=== PATIENT | male | born 1930 | race Hispanic/Latino ===

== ENCOUNTER 2018-11-12 20:59 | Emergency (ER) | payer MEDICARE ==
--- NOTE | 2018-11-12 21:20 | Emergency Department Report ---
Blank Doc - Documentation Documentation: This is a 88-year-old male that presents with unable to urinate. HX of prostate enlargement. This initial assessment/diagnostic orders/clinical plan/treatment(s) is/are subject to change based on patient's health status, clinical progression and re- assessment by fellow clinical providers in the ED. Further treatment and workup at subsequent clinical providers discretion. Patient/guardians urged not to elope from the ED as their condition may be serious if not clinically assessed and managed. Initial orders include: 1- Patient sent to MAIN ED for further evaluation and treatment 2- labs 3- UA
[2018-11-12 21:58] LABS: Albumin 4.1 g/dL (3.9-5); Calcium 9.9 mg/dL (8.4-10.2)
[2018-11-12 22:07] LABS: Basophils # (Auto) 0.1 K/mm3 (0.0-0.1); Basophils % (Auto) 1.1 % (0.0-1.8); Eosinophils # (Auto) 0.2 K/mm3 (0.0-0.4); Hematocrit 40.2 % (35.5-45.6); Hemoglobin 13.9 gm/dl (11.8-15.2); Lymphocytes % (Auto) 25.1 % (13.4-35.0); Mean Corpuscular HGB Conc 35 % (32-34); Mean Corpuscular Volume 92 fl (84-94); Monocytes # (Auto) 0.6 K/mm3 (0.0-0.8); Monocytes % (Auto) 7.7 % (0.0-7.3); Platelet Count 231 K/mm3 (140-440); Red Blood Count 4.36 M/mm3 (3.65-5.03); Red Cell Distribution Width 14.5 % (13.2-15.2)
[2018-11-12] MEDS ORDERED: ZOFRAN IV ONE (22:26)
[2018-11-12] MEDS ORDERED: MORPHINE IV ONE (22:26)
[2018-11-12] MEDS ORDERED: ZOFRAN ONE (22:28)
[2018-11-12] MEDS ORDERED: MORPHINE ONE (22:28)
--- NOTE | 2018-11-12 22:29 | Emergency Department Report ---
<LOPEZ SCHULTZDino - Last Filed: 11/13/18 04:55> ED Male HPI - General Chief complaint: Urogenital-Male Stated complaint: NEED CATHETER Time Seen by Provider: 11/12/18 21:19 Source: patient Mode of arrival: Wheelchair Limitations: No Limitations - History of Present Illness Initial comments: 88-year-old male presents to ED with inability to urinate. Patient reports history of prostate issues in the past. Denies ever having any any prostate surgeries. Patient reports suprapubic pain. Urologist: Clair CAMILO Complaint: other (urinary retention) Severity: severe Quality: aching Consistency: constant Improves with: none Worsens with: none urinary retention. denies: nausea/vomiting - Related Data Allergies Allergy/AdvReac Type Severity Reaction Status Date / Time No Known Allergies Allergy Verified 11/12/18 21:05 ED Review of Systems Comment: All other systems reviewed and negative Constitutional: denies: chills, fever Genitourinary: other (reports difficulty urinaring) ED Physical Exam - General Limitations: No Limitations General appearance: alert, other (appears uncomfortable) - Head Head exam: Present: atraumatic, normocephalic - ENT ENT exam: Present: mucous membranes moist - Neck Neck exam: Present: normal inspection - Respiratory Respiratory exam: Present: normal lung sounds bilaterally. Absent: respiratory distress - Cardiovascular Cardiovascular Exam: Present: normal rhythm - GI/Abdominal GI/Abdominal exam: Present: soft, tenderness (suprapubic). Absent: distended - exam: Present: other (bladder does not feel distended) - Extremities Exam Extremities exam: Present: normal inspection - Neurological Exam Neurological exam: Present: alert, oriented X3 - Psychiatric Psychiatric exam: Present: normal affect, normal mood - Skin Skin exam: Present: warm, dry, intact, normal color ED Course - Reevaluation(s) Reevaluation #1: 11/12/18 23:[address] catheter, but were unable. Pt states he urinated a small amount into diaper since RNs attempt. Bladder scan shows 483 mL of urine in bladder. 11/13/18 00:21 Multiple attempts using multiple catheters unsuccessful. Will page urology. 11/13/18 04:55 Repeat bladder scan shows volume of 384 mL - Consultations Consultation #1: 11/13/18 00:40 Urology paged. 11/13/18 01:43 Spoke w/ Dr Mahan, urologist. Will come in to see the pt. 11/13/18 03:36 Dr Mahan paged again. Spoke w/ him again. States he will be coming in. Spoke w/ nurse to have supplies at bedside when he arrives. ED Medical Decision Making - Lab Data Result diagrams: 11/12/18 21:25 11/12/18 21:25 ED Disposition Clinical Impression: Urinary retention, Key catheter problem, UTI (urinary tract infection) Disposition: - TO HOME OR SELFCARE Condition: Stable Instructions: Urinary Retention in Men (ED), Urinary Tract Infection in Men (ED) Referrals: CAMRON STARKEY MD [Staff Physician] - 3-5 Days YAEL BROWN MD [Staff Physician] - 3-5 Days <MOHIT BERGERON - Last Filed: 11/13/18 11:11> ED Review of Systems ROS: Stated complaint: NEED CATHETER Other details as noted in HPI ED Course Vital Signs 11/12/18 11/12/18 11/12/18 22:26 22:35 22:45 Temperature Pulse Rate Respiratory Rate Blood Pressure 134/72 134/72 Blood Pressure [Left] O2 Sat by Pulse 96 97 Oximetry 11/12/18 11/12/18 11/12/18 23:01 23:15 23:18 Temperature 99.0 F Pulse Rate 87 Respiratory Rate Blood Pressure 134/72 134/72 Blood Pressure [Left] O2 Sat by Pulse 96 97 Oximetry 11/12/18 11/12/18 11/12/18 23:21 23:31 23:45 Temperature 98.9 F Pulse Rate 98 H Respiratory 16 Rate Blood Pressure 137/75 134/72 134/72 Blood Pressure [Left] O2 Sat by Pulse 100 98 96 Oximetry 11/13/18 11/13/18 11/13/18 00:01 00:15 00:31 Temperature Pulse Rate Respiratory Rate Blood Pressure 134/72 134/72 134/72 Blood Pressure [Left] O2 Sat by Pulse 97 97 97 Oximetry 11/13/18 11/13/18 11/13/18 00:45 01:01 01:15 Temperature Pulse Rate Respiratory Rate Blood Pressure 134/72 134/72 134/72 Blood Pressure [Left] O2 Sat by Pulse 95 94 96 Oximetry 11/13/18 11/13/18 11/13/18 01:31 01:46 02:03 Temperature Pulse Rate Respiratory Rate Blood Pressure 134/72 134/72 134/72 Blood Pressure [Left] O2 Sat by Pulse 97 85 Oximetry 11/13/18 11/13/18 11/13/18 03:04 03:17 03:33 Temperature Pulse Rate Respiratory Rate Blood Pressure 134/72 140/76 140/76 Blood Pressure [Left] O2 Sat by Pulse 79 L 100 Oximetry 11/13/18 11/13/18 11/13/18 03:50 04:16 04:31 Temperature Pulse Rate Respiratory Rate Blood Pressure 140/76 140/76 140/76 Blood Pressure [Left] O2 Sat by Pulse 82 L 98 96 Oximetry 11/13/18 11/13/18 11/13/18 04:45 05:00 05:15 Temperature Pulse Rate Respiratory Rate Blood Pressure 146/78 154/72 154/72 Blood Pressure [Left] O2 Sat by Pulse 94 94 95 Oximetry 11/13/18 11/13/18 11/13/18 05:31 05:45 06:00 Temperature Pulse Rate Respiratory Rate Blood Pressure 154/72 154/72 151/75 Blood Pressure [Left] O2 Sat by Pulse 94 95 94 Oximetry 11/13/18 11/13/18 11/13/18 06:15 06:31 06:45 Temperature Pulse Rate Respiratory Rate Blood Pressure 151/75 151/75 151/75 Blood Pressure [Left] O2 Sat by Pulse 95 93 93 Oximetry 11/13/18 11/13/18 11/13/18 07:01 07:15 07:31 Temperature Pulse Rate Respiratory Rate Blood Pressure 117/54 117/54 117/54 Blood Pressure [Left] O2 Sat by Pulse 92 93 94 Oximetry 11/13/18 08:05 Temperature 98.0 F Pulse Rate 80 Respiratory 20 Rate Blood Pressure Blood Pressure 119/63 [Left] O2 Sat by Pulse 100 Oximetry - Reevaluation(s) Reevaluation #2: 11/13/18 06:30 I discussed the patient with Dr. Mahan who presented to the ER and examined the patient and inserted a new Key catheter. Dr. Mahan stated that there is a lot of debris in the urine and he is worried about UTI,so he advised to give Rocephin IV and to observe the patient in the emergency room for a few hours to make sure that there is no fever or sepsis. He stated that if patient did well he can be discharged home and to follow up with them in their office in the next 2-3 days and to be discharged with ciprofloxacin. Reevaluation #3: 11/13/18 11:08 Patient observed after Key catheter placement for more than 4 hours. No evidence of fever or sepsis. Vital signs reviewed and is unremarkable. Patient stated that he is feeling much better and ready to be discharged home. ED Medical Decision Making - Lab Data Result diagrams: 11/12/18 21:25 11/12/18 21:25 Critical care attestation.: If time is entered above; I have spent that time in minutes in the direct care of this critically ill patient, excluding procedure time. ED Disposition Is pt being admited?: No
[2018-11-13] MEDS ORDERED: MORPHINE IV ONE (01:26)
[2018-11-13] MEDS ORDERED: MORPHINE ONE (01:27)
--- NOTE | 2018-11-13 02:45 | Cat Scan Report ---
PROCEDURE: CT ABDOMEN PELVIS WO CON TECHNIQUE: Computerized axial tomography of the abdomen and pelvis was performed without intravenous contrast. This study is performed without intravascular contrast material and its sensitivity for ab dominal and pelvic pathology, including neoplasms, inflammation, abscess, free fluid, thrombosis, art erial dissection and infarction, is reduced compared with a contrast enhanced study. CT DOSE LENGTH PRODUCT: mGycm HISTORY: abd pain, diff urinating COMPARISONS: None . FINDINGS: Visualized lower thorax: No significant abnormality. Liver: Normal size and attenuation. Spleen: Normal size and attenuation. Gallbladder and biliary system: There is cholelithiasis. There is no evidence of cholecystitis. There is no biliary ductal dilatation.. Pancreas: Normal. Adrenals: Normal. Kidneys: There is bilateral hydronephrosis greater on the right. There are tiny bilateral kidney ston es. There are no ureteral stones.. GI tract: There has been right colon surgery. There are diverticula of the sigmoid and left colon. T here is no diverticulitis, colitis, bowel obstruction or mass. There is no visible appendix. . Lymph nodes and mesentery: Normal. 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 There is no aneurysm.. Bladder: Urinary bladder is distended. There are no stones.. Reproductive organs: There are radium seeds in the prostate.. Peritoneum: There is no ascites or free air, abscess or adenopathy.. 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 IMPRESSION: There is cholelithiasis. There is no evidence of cholecystitis. There is no biliary ductal dilatation . There is bilateral hydronephrosis greater on the right. There are tiny bilateral kidney stones. There are no ureteral stones. There has been right colon surgery. There are diverticula of the sigmoid and left colon. There is no diverticulitis, colitis, bowel obstruction or mass. There is no visible appendix. Urinary bladder is distended. There are no stones.. There are radium seeds in the prostate. There is no ascites or free air, abscess or adenopathy. This document is electronically signed by Manjit Moore MD., November 13 2018 02:43:58 AM ET
[2018-11-13] MEDS ORDERED: ATIVAN IV ONE (03:27)
[2018-11-13] MEDS ORDERED: ATIVAN ONE (03:31)
[2018-11-13] MEDS ORDERED: ROCEPHIN/NS 1 GM/50 ML 1 GM/50 ML BAG IV ONE (06:28)
[2018-11-13 07:28] LABS: Bacteria,Urine 1+ /HPF (Negative); Bilirubin,Urine NEG (Negative); Blood,Urine SM (Negative); Color,Urine Yellow (Yellow); Urobilinogen,Urine < 2.0 mg/dL (<2.0)
--- NOTE | 2018-11-13 10:05 | Consultation ---
Medications and Allergies Allergies Allergy/AdvReac Type Severity Reaction Status Date / Time No Known Allergies Allergy Verified 11/12/18 21:05 Exam - Constitutional Vitals: Temp Pulse Resp BP Pulse Ox 98.0 F 80 20 119/63 100 11/13/18 08:05 11/13/18 08:05 11/13/18 08:05 11/13/18 08:05 11/13/18 08:05 Results - Labs CBC & Chem 7: 11/12/18 21:25 11/12/18 21:25 Labs: Abnormal lab results 11/12/18 11/12/18 11/13/18 Range/Units 21:25 21:25 06:48 MCHC 35 H (32-34) % [place] % (Auto) 7.7 H (0.0-7.3) % Carbon Dioxide 21 L (22-30) mmol/L BUN 24 H (9-20) mg/dL Glucose 153 H (75-100) mg/dL Urine WBC (Auto) 153.0 H (0.0-6.0) /HPF
[2018-11-13 12:16] VITALS: BP 115/63
== END 2018-11-13 12:20 | disposition home or self-care (01) ==
LOC: ED 20:59
DX: T83.9XXA Unspecified complication of genitourinary prosthetic device, implant and graft, initial encounter (principal); N39.0 Urinary tract infection, site not specified; Y84.6 Urinary catheterization as the cause of abnormal reaction of the patient, or of later complication, without mention of misadventure at the time of the procedure; Y92.89 Other specified places as the place of occurrence of the external cause
CPT/HCPCS: 36415; 51702; 74176; 80053; 81001; 85025; 87040; 96365; 96375; 96376; 99284; J0696; J2060; J2270; J2405; 96374